=== PATIENT | male | born 1965 | race Caucasian/White ===

== ENCOUNTER 2019-11-12 20:04 | Emergency (ER) | payer OTHER ==
[~2019-11-12] VITALS: Ht 188 cm; Wt 138.0 kg
--- NOTE | 2019-11-12 20:48 | PHYS DOC ---
Past History Past Medical History: Sciatica, Other Additional Past Medical Histor: fell 21 ft in 2000 with chronic back pain Past Surgical History: No Surgical History Additional Smoking Information: 2-3 cigars QD Alcohol Use: Rarely Drug Use: None Adult General Chief Complaint Chief Complaint: ".. I ve got some back issues for some times.. it just gotten worse the last several month... I got CT and work up.. .I even have a follow up at pain center on 11/23.. for epidural steroids... "..".. It just really bad flare tongiht.. " HPI HPI Patient is a 53 year old male who presents with above hx and complaints of exacerbation of Lt sciatica. She denies he has had previous CTs and evaluation of his left sciatica. Patient denies any history immunosuppression. Patient denies any fever or chills. Patient denies any trauma. Patient denies any problems defecation or urination. Patient pain is located along left sciatica. S traight leg lift exacerbates pain in left side. Review of Systems Review of Systems Constitutional: Denies fever or chills [] Eyes: Denies change in visual acuity, redness, or eye pain [] HENT: Denies nasal congestion or sore throat [] Respiratory: Denies cough or shortness of breath [] Cardiovascular: No additional information not addressed in HPI [] GI: Denies abdominal pain, nausea, vomiting, bloody stools or diarrhea [] : Denies dysuria or hematuria [] Musculoskeletal: Denies exacerbation of his left sided sciatica[] Integument: Denies rash or skin lesions [] Neurologic: Denies headache, focal weakness or sensory changes [] Endocrine: Denies polyuria or polydipsia [] All other systems were reviewed and found to be within normal limits, except as documented in this note. Family History Family History Noncontributory presentation Current Medications Current Medications See nursing for home meds Allergies Allergies Denies any drug allergies Physical Exam Physical Exam Constitutional: Moderate acute distress, non-toxic appearance. [] HENT: Normocephalic, atraumatic, bilateral external ears normal, oropharynx moist, no oral exudates, nose normal. [] Eyes: PERRLA, EOMI, conjunctiva normal, no discharge. [] Neck: Normal range of motion, no tenderness, supple, no stridor. [] Cardiovascular:Heart rate regular rhythm, no murmur [] Lungs & Thorax: Bilateral breath sounds equal at apex on auscultation [] Abdomen: Bowel sounds normal, soft, no tenderness, no masses, no pulsatile masses. [] Obese. Skin: Warm, dry, no erythema, no rash. [] Back: Lumbar sacral muscle hasn't and tenderness, no CVA tenderness. [] Extremities: No tenderness, no cyanosis, no clubbing, ROM intact, no edema. [] Rate leg lift exacerbates sciatica. Neurologic: Alert and oriented X 3, normal motor function, normal sensory function, no focal deficits noted. [] Psychologic: Affect anxious, judgement normal, mood normal. [] Current Patient Data Vital Signs Vital Signs Date Time Temp Pulse Resp B/P (MAP) Pulse Ox O2 Delivery O2 Flow Rate FiO2 11/12/19 20:04 97.9 11 18 98 Room Air EKG EKG [] Radiology/Procedures Radiology/Procedures [] Course & Med Decision Making Course & Med Decision Making Pertinent Labs and Imaging studies reviewed. (See chart for details) Patient take Tylenol and ibuprofen for pain. Patient keep follow-up at pain center. Patient do a trial of lidocaine pain patches. Marked pain may take Vicoprofen up 4 times a day. Patient follow-up primary care. Return if any concerns. Impression 1.-Chronic back pain 2. Sciatica- [] Adrianna Disclaimer Adrianna Disclaimer This electronic medical record was generated, in whole or in part, using a voice recognition dictation system. Departure Departure: Disposition: HOME/RESIDENCE PRIOR TO ADM Condition: STABLE Scripts Lidocaine/Menthol (LIDOPATCH) 1 Each Adh..patch 1 SHAHBAZ TP BID for sciatica for 30 Days, #60 EACH 0 Refills Prov: LAMBERT SHAH MD 11/12/19 Hydrocodone/Ibuprofen (HYDROCODONE-IBUPROFEN 7.5-200 ) 1 Each Tablet 1 TAB PO PRN Q6HRS PRN for PAIN, #30 TAB 0 Refills Prov: LAMBERT SHAH MD 11/12/19 LAMBERT SHAH MD Nov 12, 2019 20:48
[2019-11-12] MEDS ORDERED: LIDO1ADH TP (20:51)
[2019-11-12] MEDS ORDERED: HYDR-1179 PO (20:51)
[2019-11-12] MEDS ORDERED: methylPREDNISolone SOD SUCC PF 40 MG/ML VIAL. ONE (20:55)
[2019-11-12] MEDS ORDERED: MORPHINE SULFATE 10 MG/ML SYRINGE. SQ ONE (21:00)
[2019-11-12] MEDS ORDERED: KETOROLAC 60 MG/2 ML VIAL. IM ONE (21:00)
[2019-11-12] MEDS ORDERED: ORPHENADRINE CITRATE 60 MG/2 ML VIAL. IM ONE (21:00)
[2019-11-12] MEDS ORDERED: methylPREDNISolone ACETATE 40 MG/ML VIAL. IM ONE (21:00)
[2019-11-12 21:08] LABS: BACTERIA,URINE 0 /HPF (0-FEW); BILIRUBIN,URINE NEG (NEG); CLARITY,URINE CLEAR; COLOR,URINE YELLOW; GLUCOSE,URINE 500 mg/dL (NEG); NITRITE,URINE NEG (NEG); RBC,URINE 0 /HPF (0-2); SQUAMOUS EPITHELIAL CELL,UR OCC /LPF; UROBILINOGEN,URINE 0.2 mg/dL (0.2 mg/dL); WBC,URINE 0 /HPF (0-4)
[2019-11-12 21:10] LABS: AMPHETAMINE/METHAMPHETAMINE NEG (NEG); BARBITURATES NEG (NEG); BENZODIAZEPINES NEG (NEG); CANNABINOIDS NEG (NEG); COCAINE NEG (NEG); METHADONE NEG (NEG); OPIATES NEG (NEG); PHENCYCLIDINE NEG (NEG)
[2019-11-12 21:18] VITALS: BP 156/98
== END 2019-11-12 21:18 | disposition home or self-care (01) ==
LOC: ER 20:04
DX: M54.32 Sciatica, left side (principal); G89.29 Other chronic pain; F17.210 Nicotine dependence, cigarettes, uncomplicated
CPT/HCPCS: 36415; 80307; 81001; 96372; 99284; J1030; J1885; J2270; J2360